=== PATIENT | male | born 1960 | race Two or more races ===

== ENCOUNTER → 2017-08-09 | Emergency (ER) | payer OTHER ==
[~2017-08-09] VITALS: Ht 167.6 cm; Wt 88.0 kg
[~2017-08-09] MED LIST: ASPIR 8181 MG; CATAFLAM50 MG PO; FLONASE16 GM NS; NABUMETONE500 MG PO; Neurontin PO; ORPH100T PO; OXYC1TAB9 PO; PERCOCET 5/3251 TAB PO; TORADOL60 MG IM; TRICOR48 MG; XARELTO10 MG PO
== END | disposition home or self-care (01) ==
LOC: ER 04:40
DX: S83.91XA Sprain of unspecified site of right knee, initial encounter (principal); X50.0XXA Overexertion from strenuous movement or load, initial encounter; Y93.67 Activity, basketball; Y92.018 Other place in single-family (private) house as the place of occurrence of the external cause; Y99.8 Other external cause status

== ENCOUNTER → 2017-08-10 | Outpatient (CLI) | payer OTHER | END | disposition home or self-care (01) | LOC: MRI 09:57 | DX: M25.561 Pain in right knee (principal) | CPT/HCPCS: 73721 ==

== ENCOUNTER 2018-10-25 10:32 | Outpatient (CLI) | payer OTHER | END 2018-10-25 11:55 | disposition home or self-care (01) | LOC: RAD 10:32 | DX: M25.562 Pain in left knee (principal); R07.89 Other chest pain ==